=== PATIENT | female | born 1945 | race Caucasian/White ===

== ENCOUNTER → 2017-08-27 | Day surgery (SDC) | payer OTHER ==
[~2017-08-27] VITALS: Ht 160 cm; Wt 69.9 kg
[~2017-08-27] MED LIST: ASPIRIN EC81 M1 PO; COLACE100 M1 PO; COZAAR50 M1 PO; CROMOLYN SODIUM10 M1 OU; METOPROLOL TART25 M1 PO; OMEPRAZOLE40 M1 PO; SIMVASTATIN40 M1 PO; VITAMIN D1000 UNI1 PO; ZYRTEC10 M3 PO
--- NOTE | 2017-08-27 12:01 | Operative Report ---
Operative/Inv Procedure Report Surgery Date: 08/27/17 Name of Procedure: Left partial mastectomy with wire localization and sentinel lymph node biopsy Pre-Operative Diagnosis: Left breast cancer Post-Operative Diagnosis: Same Estimated Blood Loss: scant Surgeon/Hematology Technologist: Alysha Tom MD Anesthesia: laryngeal mask airway Specimens: Left lumpectomy, cranial margin, medial margin, skin margin, sentinel lymph node Operative/Procedure Note Note: Patient has a diagnosis of clinical stage I breast cancer. Preoperative wire localization and lymphoscintigraphy were performed and those films reviewed. She was brought to the operating room for definitive management. 2 g of Ancef was given in the left breast was prepped and draped in a sterile fashion ChloraPrep. 3 mL of methylene blue diluted with 2 mL of saline was injected in the retroareolar fashion. Local anesthesia 1% lidocaine mixed half percent Marcaine was given. The axilla was approached first. A transverse incision was made in the lower axilla. The axilla was explored. There was a hot lymph node identified and excised. The axilla was further explored there were no other hot, blue, or palpable lymph nodes in the axilla. Hemostasis was adequate. Deep tissue was proximal made using interrupted Vicryl sutures, and the skin was closed using a running Biosyn subcutaneous color stitch. The breast was then approached. Due to the extreme upper location of the tumor, a periareolar incision was used. Related retractors were used to dissect the breast tissue up to the extreme 12 o'clock position. The wire was brought into the incision and the area of concern was grasped using an Allis clamp. The area was dissected orientation using margin map. Intraoperative x-ray failed to show the clip in the specimen. Tissue lateral to the excised tissue was excised up to the wire insertion site. This did not have the clip in it. The adjacent area of tissue cranially and superficially to the lumpectomy was identified with the tissue marker in it. This was excised and firm the clip. This was removed with the pathologist and oriented properly. The tissue was reapproximated using Vicryl sutures prior to processing. Additional margins were taken in the cranial, skin, and medial positions as the additional margins were wide on the tumor. Hemostasis was achieved using electrocautery. Deep tissue was approximated using interrupted Vicryl sutures and the skin was closed using a running Biosyn subcuticular stitch. Steri-Strips and sterile dressings were applied and patient transferred to the recovery room in satisfactory condition having tolerated the procedure well.
--- NOTE | 2017-08-30 08:42 | MAMMOGRAPHY REPORT ---
PROCEDURE: US GUIDANCE FOR BREAST PREOPERATIVE NEEDLE LOCALIZATION, LEFT MM POST NEEDLE LOCALIZATION SINGLE CC VIEW, LEFT BREAST SPECIMEN RADIOGRAPHY CLINICAL INFORMATION: Biopsy proved left-sided invasive breast carcinoma at 12 o'clock. Preoperative needle localization is requested. COMPARISON: Prior studies done on 07/07/2017, 06/30/2017 and 06/25/2017. TECHNIQUE AND FINDINGS: The details of the procedure, as well as the risks, benefits, and alternatives to the procedure were explained to the patient in detail and all of her questions were answered, after which, written informed consent was obtained. Prior to the procedure, sonography revealed suspicious hypervascular oval-shaped mass at 12 o'clock, 8 cm from the nipple, measuring 0.7 cm at its maximum dimension containing a tissue marker from prior ultrasound-guided biopsy. A timeout was performed, the lesion intended for needle localization was targeted and the skin of the left breast was then prepped and draped in the usual sterile fashion. Using sonographic guidance, sterile technique and buffered 5 mL of 2% lidocaine mixed with sodium bicarbonate without epinephrine for local anesthesia, a 5 cm Kopan's needle was placed within the biopsy proved malignancy at 12 o'clock, 8 cm from the nipple within the left breast. The patient tolerated the procedure well. The single view mammogram further confirmed accurate placement of the wire within the intended mass. No adjustment was considered necessary. Previously placed tissue marker was also identified adjacent to the wire. The worksheet was appropriately labeled and was sent to the OR with the patient. Subsequently, following excision of the mass, the specimen radiography was performed which revealed target within the specimen with intact wire and the previously placed tissue marker within the mass. IMPRESSION: 1. Successful sonographic-guided wire localization of the left breast biopsy proved invasive carcinoma at 12 o'clock, 8 cm from the nipple. 2. Mammographic confirmation of accurate needle localization along with appropriate marking for presurgical roadmap with the worksheet. 3. Final specimen radiograph confirming complete, adequate excision of the mass and removal of the previously placed tissue marker and intact wire. The specimen radiograph was reviewed by Dr. Tom. The histology report is pending.
== END ==
LOC: STS 01:28
DX: C50.812 Malignant neoplasm of overlapping sites of left female breast (principal); Z17.0 Estrogen receptor positive status [ER+]; I10 Essential (primary) hypertension; I48.91 Unspecified atrial fibrillation; K21.9 Gastro-esophageal reflux disease without esophagitis; Z87.891 Personal history of nicotine dependence
CPT/HCPCS: 76942; 77065-LT; 88305; 88307; J0131; J0690; J2001; J2250; J2405; J3490; Q9968

== ENCOUNTER → 2017-09-10 | Day surgery (SDC) | payer OTHER ==
[~2017-09-10] VITALS: Ht 160 cm; Wt 69.9 kg
--- NOTE | 2017-09-10 09:26 | Operative Report ---
Operative/Inv Procedure Report Surgery Date: 09/10/17 Name of Procedure: Reexcision left lumpectomy Pre-Operative Diagnosis: Left breast cancer, positive caudal margin Post-Operative Diagnosis: Same Estimated Blood Loss: scant Surgeon/Inclusion Special Education Teacher: Alysha Tom MD Anesthesia: local monitored anesthesi Specimens: Caudal margin, suture mercado true margin Operative/Procedure Note Note: Patient is status post a left lumpectomy and sentinel node biopsy for a left breast cancer. Her final pathology showed a positive caudal margin, all other margins were negative. She is brought to the back to the operating room for reexcision. She is brought to the operating room and placed under anesthesia. 2 g of Ancef was given. The breast was prepped and draped in a sterile fashion using ChloraPrep. Local anesthesia 1% lidocaine mixed half percent Marcaine was given in the previous periareolar incision was opened. The wound was explored and the lumpectomy cavity was entered. There was a fair amount of seroma which was aspirated. The caudal margin was reexcised and marked with a suture at the true margin. Hemostasis was achieved using electrocautery. Deep tissue was approximated using interrupted Vicryl sutures and the skin was closed using a running Biosyn subcuticular stitch. Steri-Strips and sterile dressings were applied and patient was transferred to the recovery room in satisfactory condition having tolerated the procedure well.
== END ==
LOC: STS 03:21
DX: C50.812 Malignant neoplasm of overlapping sites of left female breast (principal); I10 Essential (primary) hypertension; I48.0 Paroxysmal atrial fibrillation; Z79.01 Long term (current) use of anticoagulants; K21.9 Gastro-esophageal reflux disease without esophagitis
CPT/HCPCS: J0690; J2001; J2250; J3490